=== PATIENT | male | born 1980 | race Caucasian/White ===

== ENCOUNTER 2017-10-28 21:43 | Emergency (ER) | payer SELFPAY ==
[~2017-10-28] VITALS: Ht 177.8 cm; Wt 74.8 kg
--- NOTE | 2017-10-28 21:43 | NUR ---
PT TO ER C/O RAPID HEART RATE. PT DENIES CHEST PAIN. DENIES SOB. PT VITAL SIGNS WITHIN NORMAL LIMITS. PT TO ER BED WAITING TO BE SEEN BY ,
[2017-10-28 22:45] VITALS: BP 125/68
== END 2017-10-28 23:06 | disposition home or self-care (01) ==
LOC: ER 21:47
DX: F41.9 Anxiety disorder, unspecified (principal)
CPT/HCPCS: 93005; 99284; A4606; Z7610